=== PATIENT | female | born 1955 | race African-American/Black ===

== ENCOUNTER 2019-09-16 08:33 | Inpatient (IN) | payer MEDICARE ==
[2019-09-16] VITALS (12 sets, daily range): BP systolic 98–141; BP diastolic 49–81
[~2019-09-16] VITALS: Ht 167.6 cm; Wt 109.9 kg
[~2019-09-16 08:33] MED LIST: ALEVE220 M1 PO; ASPIRIN 8181 MG PO; CITALOPRAM HYDR10 MG PO; GABAPENTIN100 MG PO; GLIPIZIDE5 M2 PO; HYZAAR1 TA1 PO; IBUPROFEN600 MG PO; ISOSORB MONO30 MG PO; LIPITOR40 M1 PO; LORTAB 7.5-3251 TAB PO; METFORMIN500 M1 PO; MULTI VIT PO; NAPROSYN500 MG PO; NITRO-BID2.5 M1 PO; NITROGLYCER0.2 MG/H1 TD; NITROGLYCER0.4 MG SL; NITROSTAT0.4 MG SL; ROSUVASTATIN CA40 MG PO; SERTRALINE50 MG PO; TIZANIDINE4 MG PO; VITAMIN D2000 UNI1 PO
[2019-09-16 09:00] LABS: GFR 50 ML/MIN (>=60 (CALC)); GFR FOR AFR.AMER. > 60 ML/MIN (>=60 (CALC))
[2019-09-16 09:03] LABS: HEMATOCRIT 44.6 % (37.0-47.0); HEMOGLOBIN 13.8 g/dl (12.0-16.0); IMMATURE GRANULOCYTES 0.2 % (0.0-5.0); MEAN CELL VOLUME 87.5 fL CALC (80.0-100.0); MEAN CORPUSCULAR HGB 27.1 pG CALC (26.0-32.0); MEAN CORPUSCULAR HGB CONC 30.9 g/L CALC (32.0-36.0); NEUT# 2.26 thou/uL (2.00-7.15); RED BLOOD COUNT 5.1 mill/uL (4.20-5.60); RED CELL DISTRI WIDTH 13.2 % (11.5-15.5)
[2019-09-16 09:29] LABS: ALBUMIN 4.3 g/dL (3.2-5.0); ALKALINE PHOSPHATASE 127 u/l (38-126); ANION GAP 16 (6-22 (CALC)); BILIRUBIN, TOTAL 0.6 mg/dL (0.0-1.4); BUN 14 mg/dL (8-23); BUN/CREATININE RATIO 15 (12-20 (CALC)); CARBON DIOXIDE 25 mmol/l (22-30); CHLORIDE 105 mmol/l (95-108); CREATININE 0.9 mg/dL (0.5-1.0); GFR > 60 ML/MIN (>=60 (CALC)); GFR FOR AFR.AMER. > 60 ML/MIN (>=60 (CALC)); POTASSIUM 4.4 mmol/l (3.5-5.1); SGOT/AST 25 u/l (9-36); SODIUM 140 mmol/l (137-146); TOTAL PROTEIN 8.3 g/dL (6.3-8.2)
[2019-09-16 10:20] LABS: URINE BILIRUBIN - DIPSTICK NEGATIVE (NEGATIVE); URINE BLOOD DIPSTICK NEGATIVE (NEGATIVE); URINE COLOR YELLOW; URINE GLUCOSE - DIPSTICK NEGATIVE (NEGATIVE); URINE KETONE NEGATIVE (NEGATIVE); URINE LEUK ESTERASE NEGATIVE (NEGATIVE); URINE NITRITE - DIPSTICK NEGATIVE (Negative); URINE PROTEIN - DIPSTICK NEGATIVE (NEG-TRACE); URINE SPECIFIC GRAVITY <=1.005; URINE UROBILINOGEN - DIPSTICK 0.2 E.U./dL (0.2)
[2019-09-16] MEDS ORDERED: ATORVASTATIN CA80 MG PO (17:08)
[2019-09-16] MEDS ORDERED: GABAPENTIN300 M2 PO (17:11)
[2019-09-16] MEDS ORDERED: GLUCOTROL XL10 MG PO (17:14)
[2019-09-17] VITALS (11 sets, daily range): BP systolic 95–143; BP diastolic 53–80
[2019-09-17 05:01] LABS: HEMATOCRIT 38.9 % (37.0-47.0); HEMOGLOBIN 12.3 g/dl (12.0-16.0); MEAN CELL VOLUME 86.3 fL CALC (80.0-100.0); MEAN CORPUSCULAR HGB 27.3 pG CALC (26.0-32.0); MEAN CORPUSCULAR HGB CONC 31.6 g/L CALC (32.0-36.0); RED BLOOD COUNT 4.51 mill/uL (4.20-5.60); RED CELL DISTRI WIDTH 13.3 % (11.5-15.5)
[2019-09-17 05:22] LABS: ANION GAP 13 (6-22 (CALC)); BUN 18 mg/dL (8-23); BUN/CREATININE RATIO 21 (12-20 (CALC)); CARBON DIOXIDE 26 mmol/l (22-30); CHLORIDE 103 mmol/l (95-108); CREATININE 0.9 mg/dL (0.5-1.0); GFR > 60 ML/MIN (>=60 (CALC)); GFR FOR AFR.AMER. > 60 ML/MIN (>=60 (CALC)); POTASSIUM 4.8 mmol/l (3.5-5.1); SODIUM 137 mmol/l (137-146)
[2019-09-17 05:23] LABS: CHOLESTEROL HDL RATIO 4.1 (<4.4 (CALC)); MAGNESIUM 2.1 mg/dL (1.6-2.3)
[2019-09-18] VITALS (26 sets, daily range): BP systolic 81–118; BP diastolic 43–88
[2019-09-18 05:29] LABS: HEMATOCRIT 37.6 % (37.0-47.0); HEMOGLOBIN 11.9 g/dl (12.0-16.0); MEAN CORPUSCULAR HGB 27.5 pG CALC (26.0-32.0); MEAN CORPUSCULAR HGB CONC 31.6 g/L CALC (32.0-36.0); RED BLOOD COUNT 4.32 mill/uL (4.20-5.60); RED CELL DISTRI WIDTH 13.6 % (11.5-15.5)
[2019-09-18 05:57] LABS: ANION GAP 12 (6-22 (CALC)); BUN 27 mg/dL (8-23); BUN/CREATININE RATIO 27 (12-20 (CALC)); CARBON DIOXIDE 32 mmol/l (22-30); CHLORIDE 99 mmol/l (95-108); GFR 56 ML/MIN (>=60 (CALC)); GFR FOR AFR.AMER. > 60 ML/MIN (>=60 (CALC)); POTASSIUM 4.6 mmol/l (3.5-5.1); SODIUM 138 mmol/l (137-146)
[2019-09-19] VITALS (20 sets, daily range): BP systolic 90–129; BP diastolic 42–83
[2019-09-19 05:43] LABS: ANION GAP 12 (6-22 (CALC)); BUN 22 mg/dL (8-23); BUN/CREATININE RATIO 26 (12-20 (CALC)); CARBON DIOXIDE 29 mmol/l (22-30); CHLORIDE 100 mmol/l (95-108); CREATININE 0.8 mg/dL (0.5-1.0); GFR > 60 ML/MIN (>=60 (CALC)); GFR FOR AFR.AMER. > 60 ML/MIN (>=60 (CALC)); POTASSIUM 4.5 mmol/l (3.5-5.1); SODIUM 137 mmol/l (137-146)
[2019-09-20] VITALS (7 sets, daily range): BP systolic 93–119; BP diastolic 52–69
[2019-09-20] MEDS ORDERED: ISORDIL10 MG PO (09:15)
[2019-09-20] MEDS ORDERED: FUROSEMIDE20 MG PO (09:15)
[2019-09-20] MEDS ORDERED: CARVEDILOL3.125 MG PO (09:15)
[2019-09-20] MEDS ORDERED: MIDODRINE HCL5 MG PO (09:15)
[2019-09-20] MEDS ORDERED: ADLT ASA LOW81 MG PO (09:15)
[2019-09-20] MEDS ORDERED: LISINOPRIL2.5 MG PO (09:15)
== END 2019-09-20 15:30 | DRG 291 ==
LOC: ED 08:33 → ED-I 09:45 → ED 09:45 → ED-I 10:10 → ED 10:27 → ICU 10:28
PROVIDERS: Family Medicine; ADMIT Internal Medicine; ATTEND Internal Medicine
PROC: 5A09357 Assistance with Respiratory Ventilation, Less than 24 Consecutive Hours, Continuous Positive Airway Pressure (ICD-10-PCS; principal; 2019-09-16)
DX: I11.0 Hypertensive heart disease with heart failure (principal); J96.01 Acute respiratory failure with hypoxia; I50.23 Acute on chronic systolic (congestive) heart failure; J84.10 Pulmonary fibrosis, unspecified; I42.0 Dilated cardiomyopathy; E78.5 Hyperlipidemia, unspecified; E11.40 Type 2 diabetes mellitus with diabetic neuropathy, unspecified; G47.33 Obstructive sleep apnea (adult) (pediatric); F32.9 Major depressive disorder, single episode, unspecified; I25.119 Atherosclerotic heart disease of native coronary artery with unspecified angina pectoris; I95.9 Hypotension, unspecified; T46.5X6A Underdosing of other antihypertensive drugs, initial encounter; T50.1X6A Underdosing of loop [high-ceiling] diuretics, initial encounter; T44.7X6A Underdosing of beta-adrenoreceptor antagonists, initial encounter; Z91.120 Patient's intentional underdosing of medication regimen due to financial hardship; Z79.84 Long term (current) use of oral hypoglycemic drugs; Z86.73 Personal history of transient ischemic attack (TIA), and cerebral infarction without residual deficits
CPT/HCPCS: Q9967

== ENCOUNTER 2021-04-21 19:19 | Emergency (ER) | payer MEDICARE ==
[~2021-04-21] VITALS: Ht 167.6 cm; Wt 73.0 kg
[~2021-04-21 19:19] MED LIST changes: +ADLT ASA LOW81 MG PO; +ATORVASTATIN CA80 MG PO; +CARVEDILOL3.125 MG PO; +FUROSEMIDE20 MG PO; +GABAPENTIN300 M2 PO; +GLUCOTROL XL10 MG PO; +ISORDIL10 MG PO; +LISINOPRIL2.5 MG PO; +MIDODRINE HCL5 MG PO
[2021-04-21] MEDS ORDERED: BACTRIM DS1 TAB PO (19:47)
[2021-04-21 19:49] VITALS: BP 149/69
== END 2021-04-21 20:00 | disposition home or self-care (01) ==
LOC: ED 19:19
DX: L03.114 Cellulitis of left upper limb (principal); E11.9 Type 2 diabetes mellitus without complications; I10 Essential (primary) hypertension; Z86.73 Personal history of transient ischemic attack (TIA), and cerebral infarction without residual deficits; Z95.5 Presence of coronary angioplasty implant and graft; Z79.84 Long term (current) use of oral hypoglycemic drugs

== ENCOUNTER 2022-02-15 11:47 | Emergency (ER) | payer MEDICARE ==
[~2022-02-15] VITALS: Ht 167.6 cm; Wt 72.7 kg
[~2022-02-15 11:47] MED LIST changes: +BACTRIM DS1 TAB PO
[2022-02-15 12:18] VITALS: BP 141/89
[2022-02-15 12:30] VITALS: BP 156/136
[2022-02-15 12:45] VITALS: BP 133/87
[2022-02-15 13:00] VITALS: BP 122/84
[2022-02-15 13:15] VITALS: BP 143/95
[2022-02-15] MEDS ORDERED: NAPROXEN500 MG PO (15:04)
[2022-02-15] MEDS ORDERED: METHOCARBAMOL500 MG PO (15:04)
[2022-02-15 15:10] VITALS: BP 143/95
== END 2022-02-15 15:10 | disposition home or self-care (01) ==
LOC: ED 11:47
DX: S39.012A Strain of muscle, fascia and tendon of lower back, initial encounter (principal); R60.9 Edema, unspecified; E11.9 Type 2 diabetes mellitus without complications; I10 Essential (primary) hypertension; X50.1XXA Overexertion from prolonged static or awkward postures, initial encounter; Y93.89 Activity, other specified; Z86.73 Personal history of transient ischemic attack (TIA), and cerebral infarction without residual deficits; Z95.5 Presence of coronary angioplasty implant and graft; Z79.84 Long term (current) use of oral hypoglycemic drugs

== ENCOUNTER 2022-06-20 10:10 | Observation (INO) | payer MEDICARE ==
[2022-06-20] VITALS (10 sets, daily range): BP systolic 110–131; BP diastolic 57–93
[~2022-06-20] VITALS: Ht 167.6 cm; Wt 118.0 kg
[~2022-06-20 10:10] MED LIST changes: +METHOCARBAMOL500 MG PO; +NAPROXEN500 MG PO
[2022-06-20 10:43] LABS: HEMOGLOBIN 11.5 g/dl (12.0-16.0); IMMATURE GRANULOCYTES 0.2 % (0.0-5.0); MEAN CELL VOLUME 88.1 fL CALC (80.0-100.0); MEAN CORPUSCULAR HGB 27.4 pG CALC (26.0-32.0); MEAN CORPUSCULAR HGB CONC 31.1 g/dL CAL (32.0-36.0); NEUT# 2.48 thou/uL (2.00-7.15); RED BLOOD COUNT 4.2 mill/uL (4.20-5.60); RED CELL DISTRI WIDTH 14.3 % (11.5-15.5)
[2022-06-20 11:05] LABS: ALBUMIN 3.8 g/dL (3.2-5.0); ALKALINE PHOSPHATASE 99 u/l (38-126); ANION GAP 9 (6-22 (CALC)); BILIRUBIN, TOTAL 0.5 mg/dL (0.0-1.4); BUN 14 mg/dL (8-23); BUN/CREATININE RATIO 20 (12-20 (CALC)); CARBON DIOXIDE 26 mmol/l (22-30); CHLORIDE 110 mmol/l (95-108); CREATININE 0.7 mg/dL (0.5-1.0); GFR FOR AFR.AMER. > 60 ML/MIN (>=60 (CALC)); GFR OTHER RACES > 60 ML/MIN (>=60 (CALC)); POTASSIUM 3.6 mmol/l (3.5-5.1); SGOT/AST 29 u/l (9-36); SODIUM 141 mmol/l (137-146); TOTAL PROTEIN 7.2 g/dL (6.3-8.2)
[2022-06-21 00:07] VITALS: BP 111/49
[2022-06-21 01:44] VITALS: BP 93/47
[2022-06-21 04:16] VITALS: BP 99/44
[2022-06-21 04:21] VITALS: BP 98/52
[2022-06-21 05:51] LABS: ANION GAP 8 (6-22 (CALC)); BUN 17 mg/dL (8-23); BUN/CREATININE RATIO 26 (12-20 (CALC)); CALCULATED LDLCHOLESTEROL 68 mg/dL (62-129 (CALC)); CARBON DIOXIDE 29 mmol/l (22-30); CHLORIDE 107 mmol/l (95-108); CREATININE 0.7 mg/dL (0.5-1.0); GFR FOR AFR.AMER. > 60 ML/MIN (>=60 (CALC)); GFR OTHER RACES > 60 ML/MIN (>=60 (CALC)); HDL CHOLESTEROL 33 mg/dL (>=40); MAGNESIUM 1.7 mg/dL (1.6-2.3); POTASSIUM 4.1 mmol/l (3.5-5.1); SODIUM 140 mmol/l (137-146); TOTAL CHOLESTEROL 116 mg/dl (0-199); TOTAL TRIGLYCERIDES 75 mg/dl (30-149); VLDL CHOLESTROL 15 mg/dl (1-41 (CALC))
[2022-06-21 07:08] VITALS: BP 98/43
[2022-06-21 10:22] VITALS: BP 113/55
[2022-06-21] MEDS ORDERED: ASPIRIN ADULT L81 M2 PO (11:31)
== END 2022-06-21 15:53 | disposition home or self-care (01) ==
LOC: ED 10:10 → ED-I 10:48 → ED 10:48 → ED-I 11:55 → ED 12:34 → MS2 12:35
PROVIDERS: Family Medicine; ADMIT Internal Medicine; ATTEND Internal Medicine
DX: R07.9 Chest pain, unspecified (principal); I11.0 Hypertensive heart disease with heart failure; I50.22 Chronic systolic (congestive) heart failure; I49.3 Ventricular premature depolarization; I42.0 Dilated cardiomyopathy; E11.40 Type 2 diabetes mellitus with diabetic neuropathy, unspecified; E78.5 Hyperlipidemia, unspecified; F32.A Depression, unspecified; G47.33 Obstructive sleep apnea (adult) (pediatric); Z86.73 Personal history of transient ischemic attack (TIA), and cerebral infarction without residual deficits; Z95.5 Presence of coronary angioplasty implant and graft; Z79.84 Long term (current) use of oral hypoglycemic drugs; Z20.822 Contact with and (suspected) exposure to COVID-19
CPT/HCPCS: J1650

== ENCOUNTER 2022-07-08 08:27 | Emergency (ER) | payer MEDICARE ==
[~2022-07-08] VITALS: Ht 167.6 cm; Wt 81.8 kg
[~2022-07-08 08:27] MED LIST changes: +ASPIRIN ADULT L81 M2 PO
[2022-07-08 08:34] VITALS: BP 117/65
[2022-07-08 09:17] LABS: HEMATOCRIT 36.9 % (37.0-47.0); HEMOGLOBIN 11.5 g/dl (12.0-16.0); IMMATURE GRANULOCYTES 0.2 % (0.0-5.0); MEAN CELL VOLUME 87.6 fL CALC (80.0-100.0); MEAN CORPUSCULAR HGB 27.3 pG CALC (26.0-32.0); MEAN CORPUSCULAR HGB CONC 31.2 g/dL CAL (32.0-36.0); NEUT# 3.28 thou/uL (2.00-7.15); RED BLOOD COUNT 4.21 mill/uL (4.20-5.60); RED CELL DISTRI WIDTH 14.1 % (11.5-15.5)
[2022-07-08 09:21] LABS: ALKALINE PHOSPHATASE 97 u/l (38-126); ANION GAP 9 (6-22 (CALC)); BILIRUBIN, TOTAL 0.5 mg/dL (0.0-1.4); BUN 24 mg/dL (8-23); BUN/CREATININE RATIO 31 (12-20 (CALC)); CARBON DIOXIDE 27 mmol/l (22-30); CHLORIDE 108 mmol/l (95-108); CREATININE 0.8 mg/dL (0.5-1.0); GFR FOR AFR.AMER. > 60 ML/MIN (>=60 (CALC)); GFR OTHER RACES > 60 ML/MIN (>=60 (CALC)); POTASSIUM 4.2 mmol/l (3.5-5.1); SGOT/AST 27 u/l (9-36); SODIUM 140 mmol/l (137-146); TOTAL PROTEIN 7.5 g/dL (6.3-8.2)
[2022-07-08] MEDS ORDERED: LEVAQUIN750 M1 PO (09:57)
[2022-07-08 11:23] VITALS: BP 117/65
== END 2022-07-08 11:25 | disposition home or self-care (01) ==
LOC: ED 08:27
PROVIDERS: Emergency Medicine
DX: J18.9 Pneumonia, unspecified organism (principal); E11.9 Type 2 diabetes mellitus without complications; I10 Essential (primary) hypertension; Z86.73 Personal history of transient ischemic attack (TIA), and cerebral infarction without residual deficits; Z79.84 Long term (current) use of oral hypoglycemic drugs; Z20.822 Contact with and (suspected) exposure to COVID-19

== ENCOUNTER 2022-07-12 15:32 | Emergency (ER) | payer MEDICARE ==
[~2022-07-12] VITALS: Ht 167.6 cm; Wt 73.0 kg
[~2022-07-12 15:32] MED LIST changes: +LEVAQUIN750 M1 PO
[2022-07-12 16:27] LABS: HEMATOCRIT 39.7 % (37.0-47.0); HEMOGLOBIN 12.6 g/dl (12.0-16.0); IMMATURE GRANULOCYTES 0.2 % (0.0-5.0); MEAN CELL VOLUME 87.6 fL CALC (80.0-100.0); MEAN CORPUSCULAR HGB 27.8 pG CALC (26.0-32.0); MEAN CORPUSCULAR HGB CONC 31.7 g/dL CAL (32.0-36.0); NEUT# 3.17 thou/uL (2.00-7.15); RED BLOOD COUNT 4.53 mill/uL (4.20-5.60); RED CELL DISTRI WIDTH 14.2 % (11.5-15.5)
[2022-07-12 16:44] LABS: ALBUMIN 4.7 g/dL (3.2-5.0); ALKALINE PHOSPHATASE 114 u/l (38-126); ANION GAP 13 (6-22 (CALC)); BILIRUBIN, TOTAL 0.5 mg/dL (0.0-1.4); BUN 20 mg/dL (8-23); BUN/CREATININE RATIO 21 (12-20 (CALC)); CARBON DIOXIDE 30 mmol/l (22-30); CHLORIDE 103 mmol/l (95-108); GFR FOR AFR.AMER. > 60 ML/MIN (>=60 (CALC)); GFR OTHER RACES 55 ML/MIN (>=60 (CALC)); POTASSIUM 4.8 mmol/l (3.5-5.1); SGOT/AST 27 u/l (9-36); SODIUM 141 mmol/l (137-146); TOTAL PROTEIN 8.5 g/dL (6.3-8.2)
[2022-07-12 20:14] VITALS: BP 122/76
== END 2022-07-12 20:23 | disposition home or self-care (01) ==
LOC: ED 15:32
PROVIDERS: Emergency Medicine
DX: R06.00 Dyspnea, unspecified (principal); I10 Essential (primary) hypertension; E11.9 Type 2 diabetes mellitus without complications; Z95.5 Presence of coronary angioplasty implant and graft; Z79.84 Long term (current) use of oral hypoglycemic drugs
CPT/HCPCS: Q9967

== ENCOUNTER 2023-02-11 08:02 | Inpatient (IN) | payer MEDICARE ==
[2023-02-11] VITALS (10 sets, daily range): BP systolic 76–134; BP diastolic 45–78
[~2023-02-11] VITALS: Ht 167.6 cm; Wt 92.5 kg
[2023-02-11 08:51] LABS: BASO% 0.5 % (0-3); EOS% 0.8 % (0-8); HEMATOCRIT 40.3 % (37.0-47.0); HEMOGLOBIN 12.2 g/dl (12.0-16.0); IMMATURE GRANULOCYTES 0.3 % (0.0-5.0); LYMPH% 34.3 % (15-41); MEAN CELL VOLUME 85.6 fL CALC (80.0-100.0); MEAN CORPUSCULAR HGB 25.9 pG CALC (26.0-32.0); MEAN CORPUSCULAR HGB CONC 30.3 g/dL CAL (32.0-36.0); MONO% 8.4 % (2-13); NEUT# 3.46 thou/uL (2.00-7.15); NEUT% 55.7 % (42-76); RED BLOOD COUNT 4.71 mill/uL (4.20-5.60); RED CELL DISTRI WIDTH 17.7 % (11.5-15.5)
[2023-02-11] MEDS ORDERED: FARXIGA5 MG (08:54)
[2023-02-11] MEDS ORDERED: ALDACTONE25 MG PO (08:54)
[2023-02-11] MEDS ORDERED: TOPROL XL25 MG PO (08:54)
[2023-02-11] MEDS ORDERED: CORLANOR5 MG (08:55)
[2023-02-11] MEDS ORDERED: ENTRESTO 24-261 TAB (08:55)
[2023-02-11] MEDS ORDERED: METFORMIN HCL500 M1 PO (08:55)
[2023-02-11] MEDS ORDERED: OMEPRAZOLE DR20 MG (08:56)
[2023-02-11] MEDS ORDERED: LOSARTAN POTASS25 MG PO (08:56)
[2023-02-11] MEDS ORDERED: CARVEDILOL6.25 MG PO (08:56)
[2023-02-11] MEDS ORDERED: ALBUTEROL108 MCG/AC (08:59)
[2023-02-11 09:01] LABS: ALBUMIN 4.5 g/dL (3.2-5.0); BILIRUBIN, TOTAL 0.8 mg/dL (0.02-1.3); CREATININE 1.1 mg/dL (0.5-1.0); POTASSIUM 4.5 mmol/l (3.5-5.1); TOTAL PROTEIN 7.9 g/dL (6.3-8.2)
[2023-02-12] VITALS (30 sets, daily range): BP systolic 86–129; BP diastolic 41–95
[2023-02-12 05:08] LABS: BASO% 0.6 % (0-3); EOS% 1.2 % (0-8); HEMATOCRIT 37.4 % (37.0-47.0); HEMOGLOBIN 11.3 g/dl (12.0-16.0); IMMATURE GRANULOCYTES 0.2 % (0.0-5.0); LYMPH% 32.6 % (15-41); MEAN CELL VOLUME 85.6 fL CALC (80.0-100.0); MEAN CORPUSCULAR HGB 25.9 pG CALC (26.0-32.0); MEAN CORPUSCULAR HGB CONC 30.2 g/dL CAL (32.0-36.0); MONO% 9.5 % (2-13); NEUT# 2.81 thou/uL (2.00-7.15); NEUT% 55.9 % (42-76); RED BLOOD COUNT 4.37 mill/uL (4.20-5.60); RED CELL DISTRI WIDTH 17.6 % (11.5-15.5)
[2023-02-12 05:23] LABS: ALKALINE PHOSPHATASE 90 u/l (38-126); ANION GAP 12 (6-22 (CALC)); BILIRUBIN, TOTAL 0.6 mg/dL (0.02-1.3); BUN 25 mg/dL (8-23); BUN/CREATININE RATIO 25 (12-20 (CALC)); CARBON DIOXIDE 26 mmol/l (22-30); CHLORIDE 107 mmol/l (95-108); GFR FOR AFR.AMER. > 60 ML/MIN (>=60 (CALC)); GFR OTHER RACES 55 ML/MIN (>=60 (CALC)); POTASSIUM 4.1 mmol/l (3.5-5.1); SGOT/AST 34 u/l (9-36); SODIUM 141 mmol/l (137-146); TOTAL PROTEIN 7.1 g/dL (6.3-8.2)
[2023-02-12 13:27] LABS: CREATININE 1.3 mg/dL (0.5-1.0); MAGNESIUM 1.9 mg/dL (1.6-2.3); POTASSIUM 4.1 mmol/l (3.5-5.1)
[2023-02-13] VITALS (67 sets, daily range): BP systolic 83–122; BP diastolic 35–82
[2023-02-13 05:43] LABS: BASO% 0.6 % (0-3); EOS% 1.5 % (0-8); HEMATOCRIT 37.6 % (37.0-47.0); HEMOGLOBIN 11.3 g/dl (12.0-16.0); IMMATURE GRANULOCYTES 0.2 % (0.0-5.0); LYMPH% 34.9 % (15-41); MEAN CELL VOLUME 85.5 fL CALC (80.0-100.0); MEAN CORPUSCULAR HGB 25.7 pG CALC (26.0-32.0); MEAN CORPUSCULAR HGB CONC 30.1 g/dL CAL (32.0-36.0); MONO% 8.8 % (2-13); NEUT# 2.84 thou/uL (2.00-7.15); RED BLOOD COUNT 4.4 mill/uL (4.20-5.60); RED CELL DISTRI WIDTH 17.6 % (11.5-15.5)
[2023-02-13 05:58] LABS: ANION GAP 13 (6-22 (CALC)); BUN 31 mg/dL (8-23); BUN/CREATININE RATIO 30 (12-20 (CALC)); CARBON DIOXIDE 27 mmol/l (22-30); CHLORIDE 106 mmol/l (95-108); GFR FOR AFR.AMER. > 60 ML/MIN (>=60 (CALC)); GFR OTHER RACES 55 ML/MIN (>=60 (CALC)); MAGNESIUM 1.9 mg/dL (1.6-2.3); POTASSIUM 4.1 mmol/l (3.5-5.1); SODIUM 141 mmol/l (137-146)
[2023-02-14] VITALS (49 sets, daily range): BP systolic 87–128; BP diastolic 37–97
[2023-02-14 07:21] LABS: HEMATOCRIT 40.7 % (37.0-47.0); HEMOGLOBIN 12.3 g/dl (12.0-16.0); MEAN CELL VOLUME 84.8 fL CALC (80.0-100.0); MEAN CORPUSCULAR HGB 25.6 pG CALC (26.0-32.0); MEAN CORPUSCULAR HGB CONC 30.2 g/dL CAL (32.0-36.0); RED BLOOD COUNT 4.8 mill/uL (4.20-5.60); RED CELL DISTRI WIDTH 17.2 % (11.5-15.5)
[2023-02-14 08:09] LABS: ALBUMIN 3.8 g/dL (3.2-5.0); CREATININE 1.1 mg/dL (0.5-1.0); MAGNESIUM 1.8 mg/dL (1.6-2.3); TOTAL PROTEIN 7.1 g/dL (6.3-8.2)
[2023-02-14 08:20] LABS: BILIRUBIN, TOTAL 0.9 mg/dL (0.02-1.3)
== END 2023-02-14 12:30 | DRG 291 ==
LOC: ED 08:02 → ED-I 11:14 → ED 11:23 → MS2 11:24 → ICU 02-12 14:30
PROVIDERS: Family Medicine; Internal Medicine; ADMIT Internal Medicine; ATTEND Internal Medicine
DX: I11.0 Hypertensive heart disease with heart failure (principal); I50.23 Acute on chronic systolic (congestive) heart failure; I47.20 Ventricular tachycardia, unspecified; N17.9 Acute kidney failure, unspecified; I49.3 Ventricular premature depolarization; E11.40 Type 2 diabetes mellitus with diabetic neuropathy, unspecified; I42.8 Other cardiomyopathies; E78.5 Hyperlipidemia, unspecified; G47.33 Obstructive sleep apnea (adult) (pediatric); F32.A Depression, unspecified; Z95.5 Presence of coronary angioplasty implant and graft; Z79.84 Long term (current) use of oral hypoglycemic drugs; Z86.73 Personal history of transient ischemic attack (TIA), and cerebral infarction without residual deficits

== ENCOUNTER 2023-04-06 14:33 | Emergency (ER) | payer MEDICARE ==
[2023-04-06] VITALS (12 sets, daily range): BP systolic 113–160; BP diastolic 65–105
[~2023-04-06] VITALS: Ht 167.6 cm; Wt 95.0 kg
[~2023-04-06 14:33] MED LIST changes: +ALBUTEROL108 MCG/AC; +ALDACTONE25 MG PO; +CARVEDILOL6.25 MG PO; +CORLANOR5 MG; +ENTRESTO 24-261 TAB; +FARXIGA5 MG; +LOSARTAN POTASS25 MG PO; +METFORMIN HCL500 M1 PO; +OMEPRAZOLE DR20 MG; +TOPROL XL25 MG PO
[2023-04-06 15:46] LABS: BASO% 0.9 % (0-3); EOS% 0.2 % (0-8); HEMATOCRIT 38.2 % (37.0-47.0); HEMOGLOBIN 11.5 g/dl (12.0-16.0); IMMATURE GRANULOCYTES 0.2 % (0.0-5.0); MEAN CELL VOLUME 81.3 fL CALC (80.0-100.0); MEAN CORPUSCULAR HGB 24.5 pG CALC (26.0-32.0); MEAN CORPUSCULAR HGB CONC 30.1 g/dL CAL (32.0-36.0); MONO% 10.3 % (2-13); NEUT# 3.67 thou/uL (2.00-7.15); NEUT% 65.4 % (42-76); RED BLOOD COUNT 4.7 mill/uL (4.20-5.60); RED CELL DISTRI WIDTH 18.2 % (11.5-15.5)
[2023-04-06 15:56] LABS: ALBUMIN 3.7 g/dL (3.2-5.0); CREATININE 1.1 mg/dL (0.5-1.0); POTASSIUM 3.9 mmol/l (3.5-5.1)
[2023-04-06 16:08] LABS: INTERNATIONAL NORMALIZED RATIO 1.4 RATIO (0.7-1.3); PROTHROMBIN TIME 13.9 SECONDS (9.0-12.5)
[2023-04-06 16:09] LABS: BILIRUBIN, TOTAL 2.3 mg/dL (0.02-1.3)
[2023-04-06 21:36] LABS: URINE BILIRUBIN - DIPSTICK Negative (NEGATIVE); URINE BLOOD DIPSTICK Trace-intact (NEGATIVE); URINE COLOR Yellow; URINE GLUCOSE - DIPSTICK Negative (NEGATIVE); URINE KETONE Negative (NEGATIVE); URINE LEUK ESTERASE Trace (NEGATIVE); URINE NITRITE - DIPSTICK Negative (Negative); URINE PROTEIN - DIPSTICK Negative (NEG-TRACE); URINE SPECIFIC GRAVITY 1.015; URINE UROBILINOGEN - DIPSTICK 0.2 E.U./dL (0.2)
== END 2023-04-06 23:21 | disposition short-term general hospital (02) ==
LOC: ED 14:33 → ED-I 15:13 → ED 15:13 → ED-I 15:30 → ED 23:21
PROVIDERS: Nurse Practitioner
DX: I11.0 Hypertensive heart disease with heart failure (principal); I50.9 Heart failure, unspecified; R79.89 Other specified abnormal findings of blood chemistry; K80.20 Calculus of gallbladder without cholecystitis without obstruction; R74.8 Abnormal levels of other serum enzymes; E11.9 Type 2 diabetes mellitus without complications; I42.9 Cardiomyopathy, unspecified; K21.9 Gastro-esophageal reflux disease without esophagitis; Z86.73 Personal history of transient ischemic attack (TIA), and cerebral infarction without residual deficits; Z79.84 Long term (current) use of oral hypoglycemic drugs
CPT/HCPCS: J1650

== ENCOUNTER 2024-05-16 19:47 | Emergency (ER) | payer MEDICARE ==
[2024-05-16] VITALS (7 sets, daily range): BP systolic 90–145; BP diastolic 48–115
[~2024-05-16] VITALS: Ht 167.6 cm; Wt 60.0 kg
[~2024-05-16 19:47] MED LIST changes: +AMOX/K CLAV875 M1 PO; +BUMETANIDE1 MG PO; +METFORMIN500 M2 PO; +PEPCID20 MG PO; +SERTRALINE25 MG PO; +TOPROL XL25 M1 PO; +[UNRECOGNIZED DRUG - OTHER] PO
[2024-05-16] MEDS ORDERED: ACETAMINOPHEN 500 MG TAB PO ONE (20:00)
[2024-05-16] MEDS ORDERED: DICLOFENAC SODIUM 75 MG/TAB PO ONE (20:00)
[2024-05-16] MEDS ORDERED: traMADol HCL 50 MG/TAB PO ONE (20:00)
[2024-05-16] MEDS ORDERED: CELEBREX100 M1 PO (21:03)
== END 2024-05-16 21:55 | disposition home or self-care (01) ==
LOC: ED 19:47
DX: M17.11 Unilateral primary osteoarthritis, right knee (principal); E11.9 Type 2 diabetes mellitus without complications; I11.0 Hypertensive heart disease with heart failure; I50.9 Heart failure, unspecified; G47.33 Obstructive sleep apnea (adult) (pediatric); Z95.810 Presence of automatic (implantable) cardiac defibrillator; Z95.5 Presence of coronary angioplasty implant and graft; Z86.73 Personal history of transient ischemic attack (TIA), and cerebral infarction without residual deficits; Z79.84 Long term (current) use of oral hypoglycemic drugs

== ENCOUNTER 2024-08-11 06:22 | Inpatient (IN) | payer MEDICARE ==
[2024-08-11] VITALS (23 sets, daily range): BP systolic 94–136; BP diastolic 50–95
[~2024-08-11] VITALS: Ht 167.6 cm; Wt 73.2 kg
[~2024-08-11 06:22] MED LIST changes: +CELEBREX100 M1 PO
[2024-08-11] MEDS ORDERED: DEXTROSE 50% 50 ML/SYR IV ONE (06:35)
[2024-08-11] MEDS ORDERED: Pantoprazole Sodium 40 MG VIAL (Protonix) IV ONE (06:35)
[2024-08-11] MEDS ORDERED: DEXTROSE 10% 500 ML BAG IV ONE ×2 (06:45)
[2024-08-11 07:14] LABS: EOS% 0.2 % (0-8); HEMATOCRIT 35.1 % (37.0-47.0); HEMOGLOBIN 10.4 g/dl (12.0-16.0); IMMATURE GRANULOCYTES 1.5 % (0.0-5.0); LYMPH% 9.8 % (15-41); MEAN CORPUSCULAR HGB 27.8 pG CALC (26.0-32.0); MEAN CORPUSCULAR HGB CONC 29.6 g/dL CAL (32.0-36.0); NEUT# 4.48 thou/uL (2.00-7.15); NEUT% 74.5 % (42-76); RED BLOOD COUNT 3.74 mill/uL (4.20-5.60); RED CELL DISTRI WIDTH 21.5 % (11.5-15.5)
[2024-08-11 07:15] LABS: MEAN CELL VOLUME 93.9 fL CALC (80.0-100.0)
[2024-08-11] MEDS ORDERED: cefTRIAXone SODIUM 2 GM in SODIUM CHLORIDE 0.9% 100 ML IV ONE (07:30)
[2024-08-11 07:32] LABS: ALBUMIN 4.3 g/dL (3.2-5.0); BILIRUBIN, TOTAL 4.2 mg/dL (0.02-1.3); CREATININE 3.5 mg/dL (0.5-1.0); TOTAL PROTEIN 8.1 g/dL (6.3-8.2)
[2024-08-11 07:35] LABS: POTASSIUM 4.9 mmol/l (3.5-5.1)
[2024-08-11] MEDS ORDERED: SODIUM CHLORIDE 0.9% 1,000 ML IV ONE ×2 (07:35)
[2024-08-11 08:23] LABS: URINE BILIRUBIN - DIPSTICK Negative (NEGATIVE); URINE BLOOD DIPSTICK Negative (NEGATIVE); URINE COLOR Yellow; URINE GLUCOSE - DIPSTICK 500 mg/dL (NEGATIVE); URINE KETONE Negative (NEGATIVE); URINE LEUK ESTERASE Negative (NEGATIVE); URINE NITRITE - DIPSTICK Negative (Negative); URINE PH 5.5 (4.5-8.0); URINE PROTEIN - DIPSTICK 30 mg/dL (NEG-TRACE); URINE SPECIFIC GRAVITY 1.015
[2024-08-11 08:31] LABS: URINE HYALINE CAST FEW lpf (NONE-RARE); URINE SQUAMOUS EPITHELIAL CELL FEW EPI/hpf (0-FEW)
[2024-08-11] MEDS ORDERED: ONDANSETRON HCl 4 MG/2 ML SDV IV ONE (11:05)
[2024-08-11] MEDS ORDERED: MAGNESIUM HYDROXIDE 30 ML UDC PO PRN (12:10)
[2024-08-11] MEDS ORDERED: ACETAMINOPHEN 325 MG/TAB PO PRN (12:10)
[2024-08-11] MEDS ORDERED: LACTATED RINGER'S 1,000 ML IV SCH (12:30)
[2024-08-11] MEDS ORDERED: CEFEPIME HYDROCHLORIDE 1 GM in SODIUM CHLORIDE 0.9% 50 ML IV SCH (13:00)
[2024-08-11] MEDS ORDERED: ENOXAPARIN SODIUM 30 MG/0.3 ML INJ SC SCH (21:00)
[2024-08-12 00:05] VITALS: BP 113/49
[2024-08-12 04:54] VITALS: BP 129/71
[2024-08-12 05:53] LABS: BASO% 0.9 % (0-3); EOS% 0.2 % (0-8); HEMATOCRIT 33.1 % (37.0-47.0); IMMATURE GRANULOCYTES 0.5 % (0.0-5.0); LYMPH% 23.6 % (15-41); MEAN CELL VOLUME 93.5 fL CALC (80.0-100.0); MEAN CORPUSCULAR HGB 28.2 pG CALC (26.0-32.0); MEAN CORPUSCULAR HGB CONC 30.2 g/dL CAL (32.0-36.0); MONO% 18.8 % (2-13); NEUT# 3.18 thou/uL (2.00-7.15); RED BLOOD COUNT 3.54 mill/uL (4.20-5.60); RED CELL DISTRI WIDTH 21.8 % (11.5-15.5)
[2024-08-12 05:59] LABS: BILIRUBIN, TOTAL 3.6 mg/dL (0.02-1.3); CREATININE 3.7 mg/dL (0.5-1.0); MAGNESIUM 2.1 mg/dL (1.6-2.3); POTASSIUM 4.7 mmol/l (3.5-5.1); TOTAL PROTEIN 7.5 g/dL (6.3-8.2)
[2024-08-12 07:11] VITALS: BP 112/63
[2024-08-12] MEDS ORDERED: ONDANSETRON HCl 4 MG/2 ML SDV IV PRN (08:50)
[2024-08-12] MEDS ORDERED: FUROSEMIDE 40 MG/TAB PO SCH (10:00)
[2024-08-12] MEDS ORDERED: DEXAMETHASONE SODIUM PHOSPHATE 4 MG/VIAL SDV IV SCH (11:00)
[2024-08-12] MEDS ORDERED: METFORMIN HCL500 M1 PO (12:27)
[2024-08-12] MEDS ORDERED: BUMETANIDE1 MG PO (12:28)
[2024-08-12] MEDS ORDERED: CORLANOR5 MG PO (12:28)
[2024-08-12] MEDS ORDERED: LIPITOR80 M1 PO (12:28)
[2024-08-12] MEDS ORDERED: TOPROL XL50 MG PO (12:30)
[2024-08-12] MEDS ORDERED: ENTRESTO 24-261 TAB PO (12:30)
[2024-08-12] MEDS ORDERED: KLOR-CON M1010 MEQ PO (12:30)
[2024-08-12 18:20] VITALS: BP 125/72
[2024-08-12 18:43] VITALS: BP 125/72
[2024-08-12] MEDS ORDERED: Heparin SODIUM (Porcine) 5,000 UNITS/ML SDV IV SCH (22:00)
[2024-08-13] VITALS (13 sets, daily range): BP systolic 91–117; BP diastolic 44–63
[2024-08-13 05:02] LABS: BASO% 0.2 % (0-3); HEMATOCRIT 31.8 % (37.0-47.0); HEMOGLOBIN 9.7 g/dl (12.0-16.0); IMMATURE GRANULOCYTES 0.3 % (0.0-5.0); MEAN CELL VOLUME 91.9 fL CALC (80.0-100.0); MEAN CORPUSCULAR HGB CONC 30.5 g/dL CAL (32.0-36.0); MONO% 11.5 % (2-13); NEUT# 4.67 thou/uL (2.00-7.15); RED BLOOD COUNT 3.46 mill/uL (4.20-5.60); RED CELL DISTRI WIDTH 21.5 % (11.5-15.5)
[2024-08-13 05:15] LABS: ALBUMIN 3.7 g/dL (3.2-5.0); BILIRUBIN, TOTAL 3.1 mg/dL (0.02-1.3); CREATININE 3.7 mg/dL (0.5-1.0); MAGNESIUM 2.1 mg/dL (1.6-2.3); POTASSIUM 4.7 mmol/l (3.5-5.1); TOTAL PROTEIN 7.1 g/dL (6.3-8.2)
[2024-08-13] MEDS ORDERED: FUROSEMIDE 40 MG/4 ML SDV IV SCH (14:00)
[2024-08-13] MEDS ORDERED: Heparin SODIUM (Porcine) 5,000 UNITS/ML SDV SC SCH (22:00)
[2024-08-14] VITALS (9 sets, daily range): BP systolic 92–115; BP diastolic 48–63
[2024-08-14 05:44] LABS: ALBUMIN 3.2 g/dL (3.2-5.0); BILIRUBIN, TOTAL 2.5 mg/dL (0.02-1.3); CREATININE 3.5 mg/dL (0.5-1.0); MAGNESIUM 2.1 mg/dL (1.6-2.3); POTASSIUM 4.2 mmol/l (3.5-5.1); TOTAL PROTEIN 6.5 g/dL (6.3-8.2)
[2024-08-14 05:49] LABS: BASO% 0.2 % (0-3); HEMATOCRIT 32.5 % (37.0-47.0); HEMOGLOBIN 9.9 g/dl (12.0-16.0); IMMATURE GRANULOCYTES 0.3 % (0.0-5.0); LYMPH% 10.9 % (15-41); MEAN CELL VOLUME 93.7 fL CALC (80.0-100.0); MEAN CORPUSCULAR HGB 28.5 pG CALC (26.0-32.0); MEAN CORPUSCULAR HGB CONC 30.5 g/dL CAL (32.0-36.0); MONO% 15.6 % (2-13); NEUT# 4.48 thou/uL (2.00-7.15); RED BLOOD COUNT 3.47 mill/uL (4.20-5.60); RED CELL DISTRI WIDTH 21.9 % (11.5-15.5)
[2024-08-15] VITALS (10 sets, daily range): BP systolic 85–103; BP diastolic 37–57
[2024-08-15 05:33] LABS: BASO% 0.2 % (0-3); EOS% 1.1 % (0-8); HEMATOCRIT 35.5 % (37.0-47.0); HEMOGLOBIN 10.7 g/dl (12.0-16.0); IMMATURE GRANULOCYTES 0.2 % (0.0-5.0); LYMPH% 16.6 % (15-41); MEAN CELL VOLUME 94.9 fL CALC (80.0-100.0); MEAN CORPUSCULAR HGB 28.6 pG CALC (26.0-32.0); MEAN CORPUSCULAR HGB CONC 30.1 g/dL CAL (32.0-36.0); MONO% 16.2 % (2-13); NEUT# 2.97 thou/uL (2.00-7.15); NEUT% 65.7 % (42-76); RED BLOOD COUNT 3.74 mill/uL (4.20-5.60); RED CELL DISTRI WIDTH 21.9 % (11.5-15.5)
[2024-08-15 05:43] LABS: BILIRUBIN, TOTAL 2.2 mg/dL (0.02-1.3); CREATININE 3.3 mg/dL (0.5-1.0); POTASSIUM 3.7 mmol/l (3.5-5.1); TOTAL PROTEIN 6.1 g/dL (6.3-8.2)
[2024-08-15] MEDS ORDERED: OMNICEF300 MG PO (10:15)
== END 2024-08-15 13:56 | DRG 871 ==
LOC: ED 06:22 → ED-I 07:19 → ED 11:13 → MS2 11:14
PROVIDERS: Family Medicine; Nurse Practitioner Family; ADMIT Internal Medicine; ATTEND Internal Medicine
PROC: 0T9B70Z Drainage of Bladder with Drainage Device, Via Natural or Artificial Opening (ICD-10-PCS; principal; 2024-08-11)
DX: A41.89 Other specified sepsis (principal); I50.23 Acute on chronic systolic (congestive) heart failure; E87.20 Acidosis, unspecified; I42.0 Dilated cardiomyopathy; N17.9 Acute kidney failure, unspecified; I13.0 Hypertensive heart and chronic kidney disease with heart failure and stage 1 through stage 4 chronic kidney disease, or unspecified chronic kidney disease; R18.8 Other ascites; E11.649 Type 2 diabetes mellitus with hypoglycemia without coma; E11.22 Type 2 diabetes mellitus with diabetic chronic kidney disease; N18.9 Chronic kidney disease, unspecified; R65.20 Severe sepsis without septic shock; E11.40 Type 2 diabetes mellitus with diabetic neuropathy, unspecified; R68.0 Hypothermia, not associated with low environmental temperature; I25.119 Atherosclerotic heart disease of native coronary artery with unspecified angina pectoris; R94.31 Abnormal electrocardiogram [ECG] [EKG]; K80.20 Calculus of gallbladder without cholecystitis without obstruction; G47.33 Obstructive sleep apnea (adult) (pediatric); Z95.810 Presence of automatic (implantable) cardiac defibrillator; Z95.5 Presence of coronary angioplasty implant and graft; Z86.73 Personal history of transient ischemic attack (TIA), and cerebral infarction without residual deficits
CPT/HCPCS: J0692; J0696; J1100; J1644; J1650; J1940; J2020; J2405; J2470